=== PATIENT | female | born 1935 | race Caucasian/White ===

== ENCOUNTER → 2017-11-17 | Outpatient (CLI) | payer MEDICARE ==
[~2017-11-17] MED LIST: ANTIBIOTIC; ASCO500 PO; ASPI81CH PO; ATOR20 PO; BENA20 PO; BENHYD1012 PO; BP MED; Bacid1 EACH PO; CHOL10002; CLOB.05TC; CRANBERRY250 MG PO; CYAN1000 PO; ERYT.5TO BOTHEYES; GABA300 PO; GABAPENTIN; HYDR1TAB94 PO; HYOS.125 SL; Humulin N100 UNIT/1 SQ; INSN100I SC; INSR10I SC; INSUASPI SC; INSUL100I; INSULIN NPH; INSULIN REGULAR; KETO15TC; LEVFLO250 PO; LEVFLO500 PO; LIDO5TP TOP; LOSA25 PO; LOVA20 PO; LOVASTATIN; MAGOXI400; MAGOXI400 PO; METF500; METF500 PO; METFORMIN; Melatonin1 MG; NEURONTIN; NOVOLIN N U; PREG100; PREG100 PO; RANI150; RANITIDINE; TAMS.4ER PO; [UNRECOGNIZED DRUG - OTHER]
== END ==
LOC: LAB SHORT 14:00
DX: R35.0 Frequency of micturition (principal)
CPT/HCPCS: 87086; 87147

== ENCOUNTER → 2018-03-22 | Outpatient (CLI) | payer MEDICARE | END | disposition home or self-care (01) | LOC: LAB SHORT 17:13 → LAB 17:13 | DX: R35.0 Frequency of micturition (principal); R30.0 Dysuria | CPT/HCPCS: 87086 ==

== ENCOUNTER → 2019-09-14 | Outpatient (CLI) | payer MEDICARE ==
[~2019-09-14] MED LIST changes: +LOPE2C PO; +Zofran8 MG PO
== END ==
LOC: LAB 18:19 → LAB SHORT 18:19
DX: R35.0 Frequency of micturition (principal)
CPT/HCPCS: 87086; 87147

== ENCOUNTER 2019-11-21 20:49 | Observation (INO) | payer MEDICARE ==
[~2019-11-21] VITALS: Ht 152.4 cm; Wt 136.1 kg
[2019-11-21 22:03] LABS: Source, Urine Clean Catch
[2019-11-21 22:06] LABS: Bilirubin, Urine Neg (Neg); Blood, Urine 2+ (Neg); Glucose Qualitative, Urine Neg (Neg); Ketones, Urine Neg (Neg); Leukocyte Esterase, Urine 3+ (Neg); Nitrite, Urine Neg (Neg); Protein, Urine 2+ (Neg); Specific Gravity, Urine 1.005 (1.003-1.022); Urobilinogen, Urine NORM (Normal)
[2019-11-21 22:13] LABS: Appearance, Urine Clear (Clear); Color, Urine Yellow (P-Yellow)
[2019-11-21 22:14] LABS: Bacteria Few /hpf; Red Blood Cells, Urine 0-2 /hpf (0-2); Squamous Epithelial Cells Rare /hpf (Few); White Blood Cells, Urine 25-50 /hpf (0-5)
[2019-11-21 23:39] LABS: BASOPHILS ABSOLUTE AUTO 0.04 K/mm3 (0.00-0.23); BASOPHILS PERCENT AUTO 0 % (0-2); EOSINOPHILS ABSOLUTE AUTO 0.34 K/mm3 (0.00-0.68); EOSINOPHILS PERCENT AUTO 3 % (0-6); Hematocrit 41.2 % (33.0-51.0); Hemoglobin 13.5 g/dL (11.5-16.0); IMMATURE GRAN ABSOLUTE AUTO 0.04 K/mm3 (0.00-0.10); IMMATURE GRAN PERCENT AUTO 0 % (0-1); LYMPHOCYTES ABSOLUTE AUTO 2.54 K/mm3 (0.84-5.20); LYMPHOCYTES PERCENT AUTO 20 % (21-46); MONOCYTES ABSOLUTE AUTO 0.96 K/mm3 (0.16-1.47); MONOCYTES PERCENT AUTO 8 % (4-13); Mean Corpuscular HGB 29.5 pg (26.0-34.0); Mean Corpuscular HGB Conc 32.8 g/dL (31.5-36.5); Mean Corpuscular Volume 90 fL (80-100); Mean Platelet Volume 9.5 fL (9.1-12.4); NEUTROPHILS ABSOLUTE AUTO 8.87 K/mm3 (1.96-9.15); NEUTROPHILS PERCENT AUTO 69 % (41-73); Platelet Count 252 K/mm3 (150-400); RDW Coefficient Variation 13.6 % (11.7-14.2); RDW Standard Deviation 44.6 fL (35.1-46.3); Red Blood Cell Count 4.58 M/mm3 (3.80-5.20); White Blood Cell Count 12.79 K/mm3 (4.00-11.30)
[2019-11-21 23:52] LABS: International Normalized Ratio 0.99; Prothrombin Time Results 10.6 Sec (9.7-11.5)
[2019-11-22 00:01] LABS: Albumin/Globulin Ratio 0.8 (0.8-1.8); Bilirubin, Total 0.5 mg/dL (0.1-1.0); Calcium, Blood 8.9 mg/dL (8.5-10.1); Creatinine, Blood 1.15 mg/dL (0.40-1.00); Globulin, Blood 3.7 g/dL (2.2-4.0); Potassium, Blood 3.6 mmol/L (3.5-5.5); Total Protein, Blood 6.7 g/dL (6.4-8.2)
--- NOTE | 2019-11-22 06:23 | NUR ---
SHIFT SUMMARY PT NEW ADMIT THIS AM. AAOX4/REDDING/LEGALLY BLIND. DNR BAND PLACED TO LUE. PT WITH SOME FACIAL DROOPING TO LEFT SIDE, NO DEFICITS NOTED TO EXTREMITIES. PT REPORTING FACIAL DROOP AT BASELINE. PT ABLE TO ROLL SELF IN BED, ATTENDS IN PLACE + PT CALLS FOR BEDPAN USE. IVF PER ORDERS. FOLDS UNDER BREASTS + PANOUS WITH YEAST LIKE RASH, POWDER APPLIED. TELEMETRY IN PLACE, NSR IN 60s TO 70s PER FIRE EXTINGUISHER TESTER. PT ORIENTED TO ROOM + CALL LIGHT USE. PT DEMONSTRATES USE OF CALL LIGHT + PT RESTING AT THIS TIME POST BEDPAN USE, NADN. WILL REPORT TO DAY SHIFT RN.
--- NOTE | 2019-11-22 07:52 | NUR ---
PT HAVING CAROTID BEING COMPLETED IN ROOM PER OTHER STAFF.
--- NOTE | 2019-11-22 11:32 | NUR ---
echocardiogram completed
--- NOTE | 2019-11-22 13:13 | NUR ---
ISTRATE BEEN TO SEE PT, FAMILY WAS PRESENT. DISCUSSED PT'S STATUS. SEE ORDERS. WILL ENC PO INTAKE.
[2019-11-22 13:39] LABS: Hematocrit 41.8 % (33.0-51.0); Hemoglobin 13.8 g/dL (11.5-16.0); Mean Corpuscular HGB 29.9 pg (26.0-34.0); Mean Corpuscular Volume 91 fL (80-100); Mean Platelet Volume 9.5 fL (9.1-12.4); Platelet Count 240 K/mm3 (150-400); RDW Coefficient Variation 13.8 % (11.7-14.2); RDW Standard Deviation 46.1 fL (35.1-46.3); Red Blood Cell Count 4.62 M/mm3 (3.80-5.20); White Blood Cell Count 8.91 K/mm3 (4.00-11.30)
[2019-11-22 13:58] LABS: Albumin, Blood 2.9 g/dL (3.4-5.0); Albumin/Globulin Ratio 0.8 (0.8-1.8); Bilirubin, Total 0.8 mg/dL (0.1-1.0); Bun/Creatinine Ratio 17.6 (12.0-20.0); Calcium, Blood 8.8 mg/dL (8.5-10.1); Creatinine, Blood 1.08 mg/dL (0.40-1.00); Globulin, Blood 3.5 g/dL (2.2-4.0); Potassium, Blood 3.8 mmol/L (3.5-5.5); Total Protein, Blood 6.4 g/dL (6.4-8.2)
--- NOTE | 2019-11-22 17:38 | NUR ---
SHIFT SUMMARY PT EATING AND DRINKING. PT VOIDING. PT UP WITH WALKER. PT FAMILY IN/OUT OF ROOM. PT BEEN ASSISTED WITH ADL'S PRN. PT AGRICULTURE INSPECTOR CONT TO BE EQUAL. PT WORKED WITH THERAPY TODAY. FAMILY IN ROOM AT THIS TIME. PT UP TO CHAIR THIS EVENING FOR DINNER.
[2019-11-23 05:57] LABS: BASOPHILS ABSOLUTE AUTO 0.05 K/mm3 (0.00-0.23); BASOPHILS PERCENT AUTO 1 % (0-2); EOSINOPHILS PERCENT AUTO 3 % (0-6); Hematocrit 40.4 % (33.0-51.0); Hemoglobin 13.3 g/dL (11.5-16.0); IMMATURE GRAN ABSOLUTE AUTO 0.04 K/mm3 (0.00-0.10); IMMATURE GRAN PERCENT AUTO 0 % (0-1); LYMPHOCYTES ABSOLUTE AUTO 2.49 K/mm3 (0.84-5.20); LYMPHOCYTES PERCENT AUTO 26 % (21-46); MONOCYTES ABSOLUTE AUTO 0.89 K/mm3 (0.16-1.47); MONOCYTES PERCENT AUTO 9 % (4-13); Mean Corpuscular HGB 29.8 pg (26.0-34.0); Mean Corpuscular HGB Conc 32.9 g/dL (31.5-36.5); Mean Corpuscular Volume 90 fL (80-100); Mean Platelet Volume 9.4 fL (9.1-12.4); NEUTROPHILS PERCENT AUTO 60 % (41-73); Platelet Count 245 K/mm3 (150-400); RDW Coefficient Variation 13.8 % (11.7-14.2); RDW Standard Deviation 45.9 fL (35.1-46.3); Red Blood Cell Count 4.47 M/mm3 (3.80-5.20); White Blood Cell Count 9.47 K/mm3 (4.00-11.30)
[2019-11-23 06:20] LABS: Calcium, Blood 8.9 mg/dL (8.5-10.1); Creatinine, Blood 1.11 mg/dL (0.40-1.00); Potassium, Blood 3.6 mmol/L (3.5-5.5)
--- NOTE | 2019-11-23 06:34 | NUR ---
PATIENT UP WITH 2 PERSON ASSIST, FWW AND GAIT BELT TO THE BR. X2. BM AND VOIDING. SHE COMPLAINED OF SOME RT HAND PAIN THIS MORNING OF "50/10" ON A SCALE OF 1-10. THERE WAS A VERY SMALL SCRAP ON HER RT HAND AND A LARGE OLD BRUISE THAT WAS CAUSING ITTCHING. sHE IS EASILY DISTRACTED FROM HER 50/10 HAND PAIN. WILL CONTINUE TO MONITOR. HER MANAGER FUNCTIONAL ARE EQUAL WITH NO INCREASE IN PAIN. NO ACUTE CHANGES.
--- NOTE | 2019-11-23 07:50 | NUR ---
PT SLEEPING [place] WAKES TO VERBAL AND PHYSICAL STIMULI PT ABLE TO FOLLOW COMMANDS ALERT TO SELF ONLY WELLNESS AMBASSADOR EQUAL AND DORSAL/PLANTAR FLEXION EQUAL PT HAS BELLS PALSY CAN STICK OUT HER TONGUE AND WIGGLE IT MILD H/A
--- NOTE | 2019-11-23 09:15 | NUR ---
PT SITTING UP MEDS GIVEN SCHED HAD SOME OF HER BREAKFAST
[2019-11-23] MEDS ORDERED: CEFP200 PO (11:54)
[2019-11-23] MEDS ORDERED: HYDRA25 PO (11:55)
[2019-11-23] MEDS ORDERED: LISI20 PO (11:56)
[2019-11-23] MEDS ORDERED: Humalog100 UNIT/1 SC (11:56)
[2019-11-23] MEDS ORDERED: NYSTRIT TOP (11:57)
[2019-11-23] MEDS ORDERED: ONDA4ODT MM (11:57)
--- NOTE | 2019-11-23 12:48 | NUR ---
RX CALLED TO [facility] DISCHARGE INSTRUCTIONS REVIEWED WITH PT DAUGHTERS WC ESCORT TO CAR NO ACUTE CHANGES
== END 2019-11-23 13:40 | disposition home or self-care (01) ==
LOC: ER 20:49 → SURS 20:50
PROVIDERS: Family Medicine; Physician Assistant; ADMIT Internal Medicine
DX: I63.9 Cerebral infarction, unspecified (principal); I16.0 Hypertensive urgency; G93.41 Metabolic encephalopathy; N39.0 Urinary tract infection, site not specified; G51.0 Bell's palsy; I13.0 Hypertensive heart and chronic kidney disease with heart failure and stage 1 through stage 4 chronic kidney disease, or unspecified chronic kidney disease; E11.22 Type 2 diabetes mellitus with diabetic chronic kidney disease; N18.3 Chronic kidney disease, stage 3 (moderate); E78.5 Hyperlipidemia, unspecified; E66.9 Obesity, unspecified; Z88.2 Allergy status to sulfonamides; Z66 Do not resuscitate
CPT/HCPCS: 36415; 70450; 80048; 80053; 81001; 82947; 85025; 85027; 85610; 87086; 93005; 93010; 93306; 93880; 96365; 96372; 96375; 97116; 97162; 97530; 99285-25; A9270; A9270-GY; G0378; J0696; J1650; J1815; J7030

== ENCOUNTER → 2019-12-11 | Outpatient (CLI) | payer MEDICARE ==
[~2019-12-11] MED LIST changes: +CEFP200 PO; +HYDRA25 PO; +Humalog100 UNIT/1 SC; +LISI20 PO; +NYSTRIT TOP; +ONDA4ODT MM
[2019-12-11 12:50] LABS: Bun/Creatinine Ratio 14.9 (12.0-20.0); Calcium, Blood 8.7 mg/dL (8.5-10.1); Creatinine, Blood 1.14 mg/dL (0.40-1.00)
== END | disposition home or self-care (01) ==
LOC: LAB SHORT 11:40 → LAB 11:40
DX: E11.9 Type 2 diabetes mellitus without complications (principal)
CPT/HCPCS: 80048; 83036

== ENCOUNTER 2020-07-14 12:50 | Emergency (ER) | payer MEDICARE ==
[~2020-07-14] VITALS: Ht 157.5 cm; Wt 140.6 kg
[2020-07-14 13:16] LABS: BASOPHILS ABSOLUTE AUTO 0.04 K/mm3 (0.00-0.23); BASOPHILS PERCENT AUTO 0 % (0-2); EOSINOPHILS ABSOLUTE AUTO 0.39 K/mm3 (0.00-0.68); EOSINOPHILS PERCENT AUTO 4 % (0-6); Hematocrit 41.4 % (33.0-51.0); Hemoglobin 13.2 g/dL (11.5-16.0); IMMATURE GRAN ABSOLUTE AUTO 0.05 K/mm3 (0.00-0.10); IMMATURE GRAN PERCENT AUTO 1 % (0-1); LYMPHOCYTES ABSOLUTE AUTO 2.28 K/mm3 (0.84-5.20); LYMPHOCYTES PERCENT AUTO 24 % (21-46); MONOCYTES ABSOLUTE AUTO 0.86 K/mm3 (0.16-1.47); MONOCYTES PERCENT AUTO 9 % (4-13); Mean Corpuscular HGB 29.1 pg (26.0-34.0); Mean Corpuscular HGB Conc 31.9 g/dL (31.5-36.5); Mean Corpuscular Volume 91 fL (80-100); Mean Platelet Volume 10.1 fL (9.1-12.4); NEUTROPHILS ABSOLUTE AUTO 5.82 K/mm3 (1.96-9.15); NEUTROPHILS PERCENT AUTO 62 % (41-73); Platelet Count 265 K/mm3 (150-400); RDW Coefficient Variation 13.3 % (11.7-14.2); RDW Standard Deviation 44.8 fL (35.1-46.3); Red Blood Cell Count 4.54 M/mm3 (3.80-5.20); White Blood Cell Count 9.44 K/mm3 (4.00-11.30)
[2020-07-14 13:21] LABS: Source, Urine Catheter
[2020-07-14 13:37] LABS: Alanine Aminotransfer (ALT/SGP 14 U/L (12-78); Albumin, Blood 2.6 g/dL (3.4-5.0); Albumin/Globulin Ratio 0.7 (0.8-1.8); Alk Phos 75 U/L (50-136); Anion Gap 6 mmol/L (6-16); Aspartate Aminotrans (AST/SGOT 13 U/L (12-37); Bilirubin, Total 0.6 mg/dL (0.1-1.0); Blood Urea Nitrogen 20 mg/dL (8-24); Bun/Creatinine Ratio 17.1 (12.0-20.0); CO2, Blood 29 mmol/L (21-32); Calcium, Blood 8.7 mg/dL (8.5-10.1); Chloride, Blood 106 mmol/L (98-108); Creatinine, Blood 1.17 mg/dL (0.40-1.00); Globulin, Blood 3.5 g/dL (2.2-4.0); Glomerular Filtration Rate 47 (60-); Glucose, Blood 103 mg/dL (70-99); Potassium, Blood 4.1 mmol/L (3.5-5.5); Sodium, Blood 141 mmol/L (136-145); Total Protein, Blood 6.1 g/dL (6.4-8.2); Troponin I <0.015 ng/mL (0.000-0.040)
[2020-07-14 14:07] LABS: Appearance, Urine Clear (Clear); Bilirubin, Urine Neg (Neg); Blood, Urine Neg (Neg); Color, Urine Yellow (P-Yellow); Glucose Qualitative, Urine Neg (Neg); Ketones, Urine Neg (Neg); Leukocyte Esterase, Urine Neg (Neg); Nitrite, Urine Neg (Neg); Protein, Urine Neg (Neg); Urobilinogen, Urine NORM (Normal)
== END 2020-07-14 16:23 | disposition home or self-care (01) ==
LOC: ER 12:50
PROVIDERS: Emergency Medicine
DX: E86.0 Dehydration (principal); H54.8 Legal blindness, as defined in USA; I12.9 Hypertensive chronic kidney disease with stage 1 through stage 4 chronic kidney disease, or unspecified chronic kidney disease; E11.22 Type 2 diabetes mellitus with diabetic chronic kidney disease; N18.9 Chronic kidney disease, unspecified; E11.40 Type 2 diabetes mellitus with diabetic neuropathy, unspecified; E66.9 Obesity, unspecified; Z74.09 Other reduced mobility; Z88.2 Allergy status to sulfonamides; Z91.09 Other allergy status, other than to drugs and biological substances; Z91.041 Radiographic dye allergy status; Z79.899 Other long term (current) drug therapy; Z79.4 Long term (current) use of insulin; Z79.82 Long term (current) use of aspirin; Z68.43 Body mass index [BMI] 50.0-59.9, adult
CPT/HCPCS: 51702; 70450; 71045; 80053; 81003; 82947; 84484; 85025; 93005; 93010; 96360; 96361; 99285-25; J7030

== ENCOUNTER 2020-11-12 11:30 | Emergency (ER) | payer MEDICARE ==
[~2020-11-12] VITALS: Ht 152.4 cm; Wt 145.2 kg
[~2020-11-12 11:30] MED LIST changes: -CHOL10002; -Humulin N100 UNIT/1 SQ; -INSR10I SC; -LOSA25 PO; -LOVA20 PO
[2020-11-12 12:25] LABS: BASOPHILS ABSOLUTE AUTO 0.03 K/mm3 (0.00-0.23); BASOPHILS PERCENT AUTO 0 % (0-2); EOSINOPHILS ABSOLUTE AUTO 0.16 K/mm3 (0.00-0.68); EOSINOPHILS PERCENT AUTO 2 % (0-6); Hematocrit 38.2 % (33.0-51.0); Hemoglobin 12.5 g/dL (11.5-16.0); IMMATURE GRAN ABSOLUTE AUTO 0.03 K/mm3 (0.00-0.10); IMMATURE GRAN PERCENT AUTO 0 % (0-1); LYMPHOCYTES ABSOLUTE AUTO 1.21 K/mm3 (0.84-5.20); LYMPHOCYTES PERCENT AUTO 18 % (21-46); MONOCYTES ABSOLUTE AUTO 0.83 K/mm3 (0.16-1.47); MONOCYTES PERCENT AUTO 12 % (4-13); Mean Corpuscular HGB 29.1 pg (26.0-34.0); Mean Corpuscular HGB Conc 32.7 g/dL (31.5-36.5); Mean Corpuscular Volume 89 fL (80-100); Mean Platelet Volume 10.6 fL (9.1-12.4); NEUTROPHILS ABSOLUTE AUTO 4.48 K/mm3 (1.96-9.15); NEUTROPHILS PERCENT AUTO 67 % (41-73); Platelet Count 226 K/mm3 (150-400); RDW Coefficient Variation 14.1 % (11.7-14.2); RDW Standard Deviation 45.5 fL (35.1-46.3); White Blood Cell Count 6.74 K/mm3 (4.00-11.30)
[2020-11-12 12:28] LABS: Base Excess Venous 4.2 mmol/L; Bicarbonate Venous 27.3 mmol/L (24.0-30.0); PCO2 Venous 51.9 mmHg (38-42); PO2 Venous 198 mmHg (38-42); pH Blood Venous 7.36 (7.34-7.37)
[2020-11-12 12:39] LABS: Albumin, Blood 2.7 g/dL (3.4-5.0); Albumin/Globulin Ratio 0.8 (0.8-1.8); Bilirubin, Total 0.7 mg/dL (0.1-1.0); Bun/Creatinine Ratio 16.2 (12.0-20.0); Calcium, Blood 8.3 mg/dL (8.5-10.1); Creatinine, Blood 1.17 mg/dL (0.40-1.00); Globulin, Blood 3.6 g/dL (2.2-4.0); Potassium, Blood 3.8 mmol/L (3.5-5.5); Total Protein, Blood 6.3 g/dL (6.4-8.2)
[2020-11-12 12:51] LABS: Source, Urine Catheter
[2020-11-12 13:04] LABS: Appearance, Urine Hazy (Clear); Bilirubin, Urine Neg (Neg); Blood, Urine 1+ (Neg); Color, Urine Yellow (P-Yellow); Glucose Qualitative, Urine Neg (Neg); Ketones, Urine 1+ (Neg); Leukocyte Esterase, Urine Neg (Neg); Nitrite, Urine Neg (Neg); Protein, Urine 3+ (Neg); Specific Gravity, Urine 1.015 (1.003-1.022); Urobilinogen, Urine 1+ (Normal); pH, Urine 6.5 (5.0-8.0)
[2020-11-12 13:17] LABS: Bacteria Rare /hpf; Squamous Epithelial Cells Mod /hpf (Few); White Blood Cells, Urine 0-2 /hpf (0-5)
[2020-11-12 13:31] LABS: Influenza A, PCR NEGATIVE (NEGATIVE); Influenza B, PCR NEGATIVE (NEGATIVE); Resp Syncytial Virus, PCR NEGATIVE (NEGATIVE); SARS-Cov-2 (COVID-19) PCR, MMC NEGATIVE (NEGATIVE)
== END 2020-11-12 15:00 | disposition home or self-care (01) ==
LOC: ER 11:30
PROVIDERS: Emergency Medicine
DX: R53.1 Weakness (principal); G89.29 Other chronic pain; M79.605 Pain in left leg; M79.604 Pain in right leg; Z79.4 Long term (current) use of insulin; Z79.899 Other long term (current) drug therapy; Z20.822 Contact with and (suspected) exposure to COVID-19
CPT/HCPCS: 0241U; 36415; 51701; 71045; 80053; 81001; 82803; 84484; 85025; 93005; 93010; 99285-25

== ENCOUNTER 2020-12-12 12:41 | Observation (INO) | payer MEDICARE ==
[~2020-12-12] VITALS: Ht 167.6 cm; Wt 123.6 kg
[2020-12-12 13:22] LABS: BASOPHILS ABSOLUTE AUTO 0.04 K/mm3 (0.00-0.23); BASOPHILS PERCENT AUTO 0 % (0-2); EOSINOPHILS ABSOLUTE AUTO 0.19 K/mm3 (0.00-0.68); EOSINOPHILS PERCENT AUTO 2 % (0-6); Hematocrit 38.5 % (33.0-51.0); Hemoglobin 12.6 g/dL (11.5-16.0); IMMATURE GRAN ABSOLUTE AUTO 0.03 K/mm3 (0.00-0.10); IMMATURE GRAN PERCENT AUTO 0 % (0-1); LYMPHOCYTES ABSOLUTE AUTO 1.98 K/mm3 (0.84-5.20); LYMPHOCYTES PERCENT AUTO 21 % (21-46); MONOCYTES ABSOLUTE AUTO 1.37 K/mm3 (0.16-1.47); MONOCYTES PERCENT AUTO 15 % (4-13); Mean Corpuscular HGB 28.8 pg (26.0-34.0); Mean Corpuscular HGB Conc 32.7 g/dL (31.5-36.5); Mean Corpuscular Volume 88 fL (80-100); Mean Platelet Volume 9.9 fL (9.1-12.4); NEUTROPHILS ABSOLUTE AUTO 5.86 K/mm3 (1.96-9.15); NEUTROPHILS PERCENT AUTO 62 % (41-73); Platelet Count 246 K/mm3 (150-400); RDW Standard Deviation 45.4 fL (35.1-46.3); Red Blood Cell Count 4.37 M/mm3 (3.80-5.20); White Blood Cell Count 9.47 K/mm3 (4.00-11.30)
[2020-12-12 13:34] LABS: Albumin, Blood 2.7 g/dL (3.4-5.0); Albumin/Globulin Ratio 0.8 (0.8-1.8); Bilirubin, Total 1.2 mg/dL (0.1-1.0); Bun/Creatinine Ratio 15.3 (12.0-20.0); Calcium, Blood 8.8 mg/dL (8.5-10.1); Creatinine, Blood 1.11 mg/dL (0.40-1.00); Globulin, Blood 3.5 g/dL (2.2-4.0); Total Protein, Blood 6.2 g/dL (6.4-8.2)
[2020-12-12] MEDS ORDERED: LOVA20 PO (14:14)
[2020-12-12] MEDS ORDERED: Clotrimazole-Be15 GM TOP (14:15)
[2020-12-12] MEDS ORDERED: HUMULIN N100 UNIT/6 SC (14:16)
[2020-12-12] MEDS ORDERED: PREG100 PO (14:16)
[2020-12-12] MEDS ORDERED: LOSA25 PO (15:29)
[2020-12-12] MEDS ORDERED: HUMULIN R100 UNIT/2 SC (15:31)
[2020-12-12] MEDS ORDERED: VITAMIN D325 MC3 PO (15:31)
[2020-12-12] MEDS ORDERED: Vitamin B Comple1 EA PO (15:32)
[2020-12-12 15:39] LABS: Base Excess Venous 7.7 mmol/L; Bicarbonate Venous 29.8 mmol/L (24.0-30.0); PCO2 Venous 51.3 mmHg (38-42); PO2 Venous 46.1 mmHg (38-42); pH Blood Venous 7.41 (7.34-7.37)
[2020-12-12 16:09] LABS: Source, Urine Clean Catch
[2020-12-12 16:11] LABS: Appearance, Urine Clear (Clear); Bilirubin, Urine Neg (Neg); Blood, Urine Neg (Neg); Color, Urine Yellow (P-Yellow); Glucose Qualitative, Urine Neg (Neg); Ketones, Urine 1+ (Neg); Leukocyte Esterase, Urine Neg (Neg); Nitrite, Urine Neg (Neg); Protein, Urine 2+ (Neg); Urobilinogen, Urine 1+ (Normal)
[2020-12-12 16:22] LABS: Bacteria Not Seen /hpf; Hyaline Casts Rare /lpf (0-2); Red Blood Cells, Urine 0-2 /hpf (0-2); Squamous Epithelial Cells Rare /hpf (Few); White Blood Cells, Urine Not Seen /hpf (0-5)
--- NOTE | 2020-12-12 18:01 | NUR ---
Met with patients daughter to review her needs. Daughter relays that she has been declining the past few months and this past week has been worse. She states they had covid in the home and that she finally recoverd. We reviewed different levels of care we discussed hospice. Dionne states she has been in denial and nto wanting to face what was coming with her mother. We discussed suffering and acceptance of mothers decline. She is open considering hoem on hospice if this is her new baseling and she feels it probably is. She want limited treatment at this time and will discuss her mothers prognosis with her sister. She [facility] She also states mother has lost her primary care when doctor Jimmy and needs a phsycian. [facility] for her mothers future needs.
--- NOTE | 2020-12-12 19:26 | NUR ---
Appears to be sleeping with left eye slightly open. HOB elevated at about 45 degrees. Lui draining. No noted s/s acute distress. Call light in reach
--- NOTE | 2020-12-12 20:42 | NUR ---
HR 141, BP 166/84, T 99.2, RESPS 16. DENIES PAIN. CALL PLACED TO BANDOLEER PACKER, ORDERS FOR TELE OBTAINED. WILL MONITOR. CALL LIGHT IN REACH
[2020-12-12 23:30] LABS: Source, Urine Catheter
[2020-12-12 23:34] LABS: Bilirubin, Urine Neg (Neg); Blood, Urine 3+ (Neg); Glucose Qualitative, Urine Neg (Neg); Ketones, Urine 4+ (Neg); Leukocyte Esterase, Urine 2+ (Neg); Nitrite, Urine Neg (Neg); Protein, Urine 3+ (Neg); Urobilinogen, Urine 1+ (Normal)
[2020-12-12 23:46] LABS: Appearance, Urine Hazy (Clear); Bacteria Few /hpf; Color, Urine Yellow (P-Yellow); Squamous Epithelial Cells Rare /hpf (Few); White Blood Cells, Urine TNTC /hpf (0-5)
--- NOTE | 2020-12-13 00:34 | NUR ---
INTERMITTENT CALLING OUT "HELP ME - GET OUT OF BED!"... VOICED NEEDING TO VOID, MULTIPLE ATTEMPTS TO TELL HER SHE FARFAN A CATHETER IN. REPOSITIONED. CALL LIGHT IN REACH.
--- NOTE | 2020-12-13 02:51 | NUR ---
RESTING QUIETLY. CALL LIGHT IN REACH
[2020-12-13 04:52] LABS: Hematocrit 37.7 % (33.0-51.0); Hemoglobin 12.8 g/dL (11.5-16.0); Mean Corpuscular HGB 29.2 pg (26.0-34.0); Mean Corpuscular Volume 86 fL (80-100); Platelet Count 235 K/mm3 (150-400); RDW Coefficient Variation 13.8 % (11.7-14.2); RDW Standard Deviation 43.4 fL (35.1-46.3); Red Blood Cell Count 4.39 M/mm3 (3.80-5.20)
[2020-12-13 05:20] LABS: Anion Gap 8 mmol/L (6-16); Blood Urea Nitrogen 16 mg/dL (8-24); Bun/Creatinine Ratio 17.3 (12.0-20.0); CO2, Blood 28 mmol/L (21-32); Calcium, Blood 8.4 mg/dL (8.5-10.1); Chloride, Blood 103 mmol/L (98-108); Creatinine, Blood 0.93 mg/dL (0.40-1.00); Glomerular Filtration Rate >60 (60-); Glucose, Blood 175 mg/dL (70-99); Potassium, Blood 3.6 mmol/L (3.5-5.5); Sodium, Blood 139 mmol/L (136-145)
--- NOTE | 2020-12-13 05:23 | NUR ---
SHIFT SUMMARY FOR THE FIRST FEW HOURS OF THE SHIFT, PT CALLED OUT FOR HELP TO GET OUT OF BED TO VOID. EVEN THOUGH WAS REDIRECTED BY STAFF RE HER BYRD CATHETER. RECEIVED TYLENOL AT 2319 FOR PAIN AND SLIGHT FEVER. MED SEEMED TO HELP SOON SHE WAS ABLE TO APPARENTLY FALL ASLEEP AND REMAINED SO UNTIL LABS THIS AM. CURRENTLY RSTING QUIETLY WITH CALL LIGHT IN REACH. BYRD DRAINING.
--- NOTE | 2020-12-13 18:27 | NUR ---
SHIFT SUMMARY PT AOX1; PT VERY HEAVY 2P MAX ASSIST; PT IS CURRENTLY ON BEDREST; GRANDSON STATED THAT THE PT USUALLY WALKS A LITTLE BIT AT HOME. PT IS ON SINUS TACH; AND CONTINUOSLY PULL OUT HER TELE; SHE ALSO PULLED HER IV AND TRIED TO PULL HER BYRD ONCE . MIGHT DISCHARGE TO HOME TOMORROW WITH PRIMARY CAREGIVER WHO IS HER DTR. PT HAD BM TODAY. BED IS IN THE LOWEST POSITION AND CALL LIGHT WITHIN REACH
--- NOTE | 2020-12-13 19:46 | NUR ---
AWAKE, VOICING DISCOMFORT ER BP GETTING TAKEN. CALL LIGHT IN REACH
--- NOTE | 2020-12-14 07:17 | NUR ---
SHIFT SUMMARY AWAKE AT INTERVALS, PULLING AT LINES, OCCASIONAL SCREAMS BUT WOULD QUIET DOWN WHEN STAFF ENTERED ROOM. BILATERAL MITTENS APPLIED PER MD ORDERS TO PREVENT REMOVAL OF IV AND MED TELE WIRES, BUT EVEN STILL WAS ABLE TO PULL OUT IV, ETC. REFUSED TO ALLOW STAFF PLACE ANOTHER IV AND THUS DID NOT GET ANOTHER ONE IN, AM NURSE TO FOLLOW UP WITH THIS. HOB ELEVATED FOR BREATHING COMFORT. CALL LIGHT IN REACH
--- NOTE | 2020-12-14 09:00 | NUR ---
DOCTOR AT BEDSIDE. PT PULLED IV THIS MORNING; NO IV ACCESS AT THIS TIME. DOCTOR WILL SWITCH TO PO ABX INSTEAD OF IV. TALKED TO DTR THIS AM CONCERNS ABOUT THE PT MOBILITY AT THIS POINT. TALKED TO DR ABOUT THE DTR CONCERNS.
--- NOTE | 2020-12-14 16:40 | NUR ---
SHIFT SUMMARY PT AOX1, PT IS ON MITTS RESTRAINT DUE TO TO PULLING LINES/BYRD/TELE. PT DTR VISITED THE PT; AND DISCUSSED ABOUT HER CONCERNS WHEN IT COMES TO MOBILITY OF THE PT. SHE STATED THAT SHE IS THE ONLY PERSON THAT WILL TAKE CARE OF HER AND SHE DONT THINK SHE CAN DO IT ALONE IF HER MOM IS NOT ABLE TO GO BACK TO HER BASELINE, WHICH IS STANDING AND USING FWW. SHE STATED THAT MAYBE HER MOM NEEDS TO GO TO SNF FOR REHAB WHICH IS [facility] WHERE SHE WORKS BECAUSE THE INSURANCE CAN COVER SOME OF THE REHAB. SHE WILL COME BACK TOMORROW. PT WAS MEDICATED FOR PAINX1. PT CONTINUOSLY SCREAM WHEN AWAKE AND SAYS "HELP". PT DTR STATED THAT THE PT IS DEFINITELY NOT ON HER BASELINE. PT ON TELE SINUS TACH. NO APPARENT DISTRESS. BED IS IN THE LOWEST POSITION AND CALL LIGHT WITHIN REACH
--- NOTE | 2020-12-14 23:59 | NUR ---
CONTINUES TO CALL OUT AT INTERVALS RE GOING TO BATHROOM - TO VOID, BYRD IN PLACE, DRAINING LIGHT FRANNIE. TOLERATED MEDS. MITTENS REMAIN IN USE PER MD ORDERS A SHE CONTINUES TO PULL OFF TELE LEADS. HOB ELEVATED FOR COMFORT. NO NOTED S/S ACUTE DISTRESS. CALL LIG IN REACH
--- NOTE | 2020-12-15 03:54 | NUR ---
SHIFT SUMMARY AWAKE AT INTERVALS, INTERMITTENT CALLING OUT, BUT NO NOTED DISTRESS WHEN ASSESSING PT. MITTENS REMAIN IN USE PER MD ORDERS SHE CONTINUES TO PULL AT MED TELE LEADS AND LINES, NOT REDIRECTABLE. CARSON KATHLEEN. RAILS UP X 3, CALL LIGHT IN REACH.
--- NOTE | 2020-12-15 17:17 | NUR ---
PT AOX1 AND VERY CONFUSED. PT WAS NOT ABLE TO MAKE ANY INTELLIGIBLE CONVERSATION. PT MOSTLY SCREAMS AND CRIES OUT SOMETIMES FOR NO REASON. PT WILL CRY OUT WITH ANY KIND OF GENTLE TOUCH AND THROUGH OUT CHANGING AND TURNING. PT IS TURNED Q2 AND REPOSTIONED. CALL LIGHT IS WITHIN REACH AND BED ALARM IN PLACE. WILL CONTINUE TO MONITOR.
--- NOTE | 2020-12-15 18:57 | NUR ---
Spiritual care note: Attempted to meet with Destini to offer comfort, prayer, and assurance. She screamed at the slightest touch, and appeared quite altered. I said The Lord's prayer, thinking to would be something familiar, but she began screaming before I could finish. I sat beside her quietly for awhile. She was restless and appeared fearful. No family present at time of visit. I will remain available.
--- NOTE | 2020-12-15 19:12 | NUR ---
Multiple supportive visits pt to transition to hospice. Family has decided to taker her home. Pt unable to sign POA. Family has obtained an motor coach driver for asssistance in managing her affairs.
--- NOTE | 2020-12-16 04:20 | NUR ---
SHIFT SUMMARY: PT IS ALERT AND CONFUSED WITH NO MEANINGFUL VERBAL RESPONSE. SHE YELLS OUT OFTEN FOR HELP BUT WILL NOT INDICATE WHAT SHE NEEDS HELP WITH. PT DID SLEEP A SIGNIFICANT AMOUNT OF THE NIGHT. PLAN TO DC HOME ON HOSPICE THIS MORNING. BYRD PATENT AND DRAINING YELLOW URINE. NO ACUTE CHANGES OVERNIGHT. WILL CONTINUE TO MONITOR.
[2020-12-16] MEDS ORDERED: ACET500 PO (10:43)
[2020-12-16] MEDS ORDERED: CEFD300 PO (10:44)
[2020-12-16] MEDS ORDERED: DOCUZEN 8.6-501 EACH PO (10:46)
[2020-12-16] MEDS ORDERED: METO25ER PO (10:47)
--- NOTE | 2020-12-16 13:28 | NUR ---
PT DISCHARGED HOME TO HOSPICE VIA AMBULANCE AT 1157. PT STILL AOX1 AND ONLY VAN OUT AND SCREAMS UNLESS BEING CHANGED THEN SAYS ONE OR TWO WORD STATEMENTS. PT WAS A HEAVY THREE PERSON TURN. BYRD WAS LEFT IN PLACE FOR COMFORT OF CARE. NO DISTRESS NOTED.
== END 2020-12-16 12:09 | disposition home or self-care (01) ==
LOC: ER 12:41 → MEDS 12:42
PROVIDERS: Emergency Medicine; ADMIT Internal Medicine
DX: G93.41 Metabolic encephalopathy (principal); G31.1 Senile degeneration of brain, not elsewhere classified; N39.0 Urinary tract infection, site not specified; I12.9 Hypertensive chronic kidney disease with stage 1 through stage 4 chronic kidney disease, or unspecified chronic kidney disease; N18.30 Chronic kidney disease, stage 3 unspecified; E11.22 Type 2 diabetes mellitus with diabetic chronic kidney disease; Z66 Do not resuscitate; E11.40 Type 2 diabetes mellitus with diabetic neuropathy, unspecified; E66.9 Obesity, unspecified; F17.200 Nicotine dependence, unspecified, uncomplicated; R26.9 Unspecified abnormalities of gait and mobility; Z86.16 Personal history of COVID-19; Z74.09 Other reduced mobility; Z86.73 Personal history of transient ischemic attack (TIA), and cerebral infarction without residual deficits; Z88.2 Allergy status to sulfonamides; Z79.4 Long term (current) use of insulin; Z79.899 Other long term (current) drug therapy
CPT/HCPCS: 36415; 51702; 71045; 80048; 80053; 81001; 82803; 84443; 85025; 85027; 87086; 92610; 93005; 93010; 96374; 99285-25; A9270; G0378; J0696